=== PATIENT | female | born 1955 | race Caucasian/White ===

== ENCOUNTER 2016-11-03 08:14 | Day surgery (SDC) | payer BC ==
[~2016-11-03 08:14] MED LIST: Lactated Ringers 1,000 ML IV SCH; Midazolam 1 MG/ML 2 ML SDV ONE; Propofol 200 MG/20 ML SDV ONE; Sodium Chloride 0.9% 10 ML Syringe FLUSH PRN; Sodium Chloride 0.9% 2.5 ML Syringe FLUSH PRN; fentaNYL 100 MCG/2 ML SDV ONE
--- NOTE | 2016-11-03 08:52 | PCM.PREANE ---
Preanesthetic Assessment - Anesthesia/Transfusion/Family Hx Anesthesia History: Prior Anesthesia Without Reaction Family History of Anesthesia Reaction: No Transfusion History: No Prior Transfusion(s) - Review of Systems General: No Symptoms Pulmonary: No Symptoms Cardiovascular: No Symptoms Gastrointestinal: No symptoms Neurological: No Symptoms Other: Reports: None - Physical Assessment NPO Status Date: 11/02/16 O2 Sat by Pulse Oximetry: 98 Respiratory Rate: 16 Vital Signs: Last Vital Signs Temp 36.8 C 11/03/16 08:46 Pulse 76 11/03/16 08:46 Resp 16 11/03/16 08:46 BP 131/67 11/03/16 08:46 Pulse Ox 98 11/03/16 08:46 Height: 1.73 m Weight: 111.13 kg ASA Class: 2 Mental Status: Alert & Oriented x3 Airway Class: Mallampati = 2 Dentition: Reports: Normal Dentition ROM/Head Extension: Full Lungs: Clear to auscultation Cardiovascular: Regular Rate - Allergies Allergies/Adverse Reactions: Allergies Allergy/AdvReac Type Severity Reaction Status Date / Time No Known Allergies Allergy Verified 11/01/16 08:19 - Anesthesia Plan Pre-Op Medication Ordered: None - Acknowledgements Anesthesia Type Planned: General Anesthesia Pt an Appropriate Candidate for the Planned Anesthesia: Yes Alternatives and Risks of Anesthesia Discussed w Pt/Guardian: Yes Pt/Guardian Understands and Agrees with Anesthesia Plan: Yes PreAnesthesia Questionnaire HEENT History: Reports: Other (see below) Other HEENT History: wears glasses Gastrointestinal History: Reports: Colon polyp Musculoskeletal History: Reports: Arthritis, Fracture Other Musculoskeletal History: hx arthritis to knees Neurological History: Reports: None Endocrine/Metabolic History: Reports: Obesity/BMI 30+ - Past Surgical History Head Surgeries/Procedures: Reports: None GI Surgical History: Reports: Colonoscopy Neurological Surgical History: Reports: Lumbar spine Other Neurological Surgeries/Procedures: hx back surgery Musculoskeletal Surgical History: Reports: Other (see below) Other Musculoskeletal Surgeries/Procedures:: hx of repair of rt ankle fx - SUBSTANCE USE Smoking Status *Q: Never Smoker Recreational Drug Use History: No - HOME MEDS Home Medications: Home Meds . [No Known Home Meds] 11/01/16 [History] - CURRENT (IN HOUSE) MEDS Current Meds: Current Medications Lactated Ringer's (Ringers, Lactated) 1,000 mls @ 125 mls/hr IV ASDIRECTED CORNELIO Last Admin: 11/03/16 08:45 Dose: 125 mls/hr Sodium Chloride (Saline Flush) 10 ml FLUSH ASDIRECTED PRN PRN Reason: Keep Vein Open Sodium Chloride (Saline Flush) 2.5 ml FLUSH ASDIRECTED PRN PRN Reason: Keep Vein Open Discontinued Medications Fentanyl (Sublimaze) Confirm Administered Dose 100 mcg .ROUTE .STK-MED ONE Stop: 11/03/16 07:36 Lidocaine HCl (Xylocaine-Mpf 1%) Confirm Administered Dose 5 ml .ROUTE .STK-MED ONE Stop: 11/03/16 07:37 Midazolam HCl (Versed 1 Mg/Ml) Confirm Administered Dose 2 mg .ROUTE .STK-MED ONE Stop: 11/03/16 07:36 Propofol (Diprivan 20 Ml) Confirm Administered Dose 200 mg .ROUTE .STK-MED ONE Stop: 11/03/16 07:36
[2016-11-03] MEDS ORDERED: Propofol 200 MG/20 ML SDV ONE (11:14)
--- NOTE | 2016-11-03 11:41 | PCM48HPAN ---
Post Anesthesia Note - EVALUATION WITHIN 48HRS OF ANESTHETIC Vital Signs in Normal Range: Yes Patient Participated in Evaluation: Yes Respiratory Function Stable: Yes Airway Patent: Yes Cardiovascular Function Stable: Yes Hydration Status Stable: Yes Pain Control Satisfactory: Yes Nausea and Vomiting Control Satisfactory: Yes Mental Status Recovered: Yes
--- NOTE | 2016-11-03 11:41 | PCM.POSTAN ---
POST ANESTHESIA ASSESSMENT - MENTAL STATUS Mental Status: alert, oriented - RESPIRATORY Respiratory Status: respiratory rate WNL, airway patent - CARDIOVASCULAR CV Status: pulse rate WNL, blood pressure stable - GASTROINTESTINAL GI Status: no symptoms - POST OP HYDRATION Hydration Status: adequate & stable
--- NOTE | 2016-11-03 11:52 | PCM.OPNOTE ---
- General Post-Op/Procedure Note Date of Surgery/Procedure: 11/03/16 Operative Procedure(s): COlonoscopy Findings: Normal colonoscopy. Unable to retroflex in cecum due to looping of scope. 10 min Cecum to anus time. Pre Op Diagnosis: colon polyps Post-Op Diagnosis: normal colon Anesthesia Technique: MAC Primary Surgeon: Victorina Eller Condition: Good Free Text/Narrative:: Intake & Output 11/02/16 11/03/16 11/03/16 22:59 06:59 14:59 Intake Total 750 Balance 750
[2016-11-03 12:07] VITALS: BP 112/74
--- NOTE | 2016-11-03 20:58 | OR ---
SURGEON: KEYON PRICE MD DATE OF PROCEDURE: 11/03/2016 PREOPERATIVE DIAGNOSIS: History of colon polyps. POSTOPERATIVE DIAGNOSIS: History of colon polyps. PROCEDURE PERFORMED: Screening colonoscopy. INSTRUMENT USED: Olympus colonoscope. ANESTHESIA: MAC. EXTENT OF EXAM: To the cecum. PREPARATION: Good. LIMITATIONS: Significant looping proximally. INDICATIONS: The patient is a 60-year-old female, who presents for her 5-year followup colonoscopy. She was found to have polyps on her last colonoscopy and told to follow up within 5 years. The patient and I discussed the procedure as well as expected perioperative course. We discussed the risks, including bleeding, infection, or damage to surrounding structures, including perforation. The patient verbalized understanding and wished to proceed. PROCEDURE IN DETAIL: The patient was brought to the endoscopy suite and placed in a left lateral decubitus position. A time-out was completed verifying the patient's name, age, date of , allergies, and procedure to be performed. Monitored anesthesia care was induced and continuous oxygen was provided via nasal cannula throughout the procedure. After adequate sedation was achieved, digital rectal exam was performed. The patient had a very small skin tag along the right lateral anoderm. Otherwise, the examination was within normal limits. A well lubricated colonoscope was inserted in the rectum and advanced under direct visualization to the level of the cecum. The cecum was identified by both visual and anatomic landmarks. A photograph was taken of the cecal cap but I was unable to retroflex the scope within the cecum due to significant looping within the sigmoid colon. The scope was then fully withdrawn while examining the color, texture, anatomy, and integrity mucosa from the cecum to the anal canal. The findings were consistent with normal colonic mucosa. The scope was then brought into the rectum and retroflexed to allow visualization of the anal canal opening. This appeared normal and a photograph was taken. The scope was straightened out and removed from the patient. Cecum to anus time was 10 minutes. The procedure was terminated. The patient was transferred to the recovery room in stable condition. ENDOSCOPIC DIAGNOSIS: Normal colonoscopy. RECOMMENDATIONS: Follow up in clinic in 5 years. JOEL KHALIL /[id number] VIRAL
== END 2016-11-03 12:03 | disposition home or self-care (01) ==
LOC: MW.SDS 08:14
PROVIDERS: ATTEND Surgery
PROC: 0DJD8ZZ Inspection of Lower Intestinal Tract, Via Natural or Artificial Opening Endoscopic (ICD-10-PCS; principal; 2016-11-03)
DX: Z09 Encounter for follow-up examination after completed treatment for conditions other than malignant neoplasm (principal); M17.0 Bilateral primary osteoarthritis of knee; E66.9 Obesity, unspecified; Z86.010 Personal history of colon polyps; Z98.890 Other specified postprocedural states; Z68.37 Body mass index [BMI] 37.0-37.9, adult
CPT/HCPCS: 45378; J2250; J3010; J7120; J2704

== ENCOUNTER → 2021-09-21 | Day surgery (SDC) | payer MEDICARE, OTHER ==
[~2021-09-21] MED LIST changes: -Midazolam 1 MG/ML 2 ML SDV ONE; +Sodium Chloride 0.9% 20 ML SDV IV PRN
[2021-09-21 15:43] VITALS: BP 113/62; PULSE 72
== END | disposition home or self-care (01) ==
LOC: MW.SDS 10:59
PROVIDERS: ATTEND Surgery
DX: Z12.11 Encounter for screening for malignant neoplasm of colon (principal); K62.1 Rectal polyp; E78.00 Pure hypercholesterolemia, unspecified; E66.9 Obesity, unspecified; E03.8 Other specified hypothyroidism; Z79.899 Other long term (current) drug therapy; Z98.890 Other specified postprocedural states; Z68.39 Body mass index [BMI] 39.0-39.9, adult; Z87.891 Personal history of nicotine dependence
CPT/HCPCS: 45380; J2704; J3010; J7120; 00812

== ENCOUNTER 2025-01-08 10:55 | Emergency (ER) | payer MEDICARE, OTHER ==
[2025-01-08 11:29] VITALS: PULSE 65
[2025-01-08 12:24] VITALS: BP 110/63
== END 2025-01-08 12:23 | disposition home or self-care (01) ==
LOC: MW.ED 10:55
DX: S52.501A Unspecified fracture of the lower end of right radius, initial encounter for closed fracture (principal); Z79.899 Other long term (current) drug therapy; Z75.3 Unavailability and inaccessibility of health-care facilities; W18.40XA Slipping, tripping and stumbling without falling, unspecified, initial encounter; Y93.89 Activity, other specified
CPT/HCPCS: 29125; 73090-26-RT; 73090-RT; 73110-26-RT; 73110-RT; 99283; 99283-25

== ENCOUNTER 2025-01-10 10:33 | Day surgery (SDC) | payer MEDICARE, OTHER ==
[~2025-01-10 10:33] MED LIST changes: +Albuterol 0.083% 2.5 MG/3 ML Neb Soln NEB PRN; +Famotidine 20 MG/2 ML SDV ONE; +HYDROmorphone 1 MG/ML Syringe IVPUSH PRN; -Lactated Ringers 1,000 ML IV SCH; +Metoclopramide 10 MG/2 ML SDV IVPUSH PRN; +Midazolam 1 MG/ML 2 ML SDV ONE; +Morphine 2 MG/ML SYRINGE IVPUSH PRN; +Naloxone 0.4 MG/ML SDV IVPUSH PRN; +Ondansetron 4 MG/2 ML SDV IVPUSH PRN; +Phenylephrine HCl In 0.9% NaCl 1 MG/10 ML Syringe IVPUSH PRN; +Ropivacaine 0.5% 5 MG/ML 30 ML SDV ONE; -Sodium Chloride 0.9% 10 ML Syringe FLUSH PRN; -Sodium Chloride 0.9% 2.5 ML Syringe FLUSH PRN; -Sodium Chloride 0.9% 20 ML SDV IV PRN; -fentaNYL 100 MCG/2 ML SDV ONE; +fentaNYL 50 MCG/ML SDV IVPUSH PRN
[2025-01-10] MEDS: Lactated Ringers 1,000 ML IV SCH (11:15)
[2025-01-10] MEDS ORDERED: Ketamine HCL/NACL, ISO-OSM 50 MG/5 ML Syringe ONE (12:18)
[2025-01-10] MEDS ORDERED: Ondansetron 4 MG/2 ML SDV ONE (13:12)
[2025-01-10] MEDS ORDERED: ceFAZolin 2 GM Vial ONE (13:22)
[2025-01-10 13:56] VITALS: BP 150/72; PULSE 63
== END 2025-01-10 14:30 | disposition home or self-care (01) ==
LOC: MW.SDS 10:33
PROVIDERS: ATTEND Orthopaedic Surgery
DX: S52.501A Unspecified fracture of the lower end of right radius, initial encounter for closed fracture (principal); E78.00 Pure hypercholesterolemia, unspecified; E66.9 Obesity, unspecified; Z87.891 Personal history of nicotine dependence; X58.XXXA Exposure to other specified factors, initial encounter
CPT/HCPCS: 25607; J0690; J2405; J2704; J2795; J7120; 01830; 64415; C1713; C1776; J2250; J3490